=== PATIENT | female | born 1990 | race African-American/Black ===

== ENCOUNTER 2017-06-18 18:02 | Emergency (ER) | payer OTHER ==
[~2017-06-18] VITALS: Ht 172.7 cm; Wt 131.5 kg
[~2017-06-18 18:02] MED LIST: AMOXICILLIN 50500 MG PO; IBUPROFEN 200200 M1; PROMETHAZINE/C118 ML PO
[2017-06-18 18:06] VITALS: BP 149/94
[2017-06-18] MEDS ORDERED: CIPROFLOXIN HC2.5 M1 OPHTHALMIC (18:33)
== END 2017-06-18 18:45 | disposition home or self-care (01) ==
LOC: ER 18:02
DX: S05.01XA Injury of conjunctiva and corneal abrasion without foreign body, right eye, initial encounter (principal); F12.10 Cannabis abuse, uncomplicated; X58.XXXA Exposure to other specified factors, initial encounter; Y93.89 Activity, other specified; Y92.89 Other specified places as the place of occurrence of the external cause; Y99.8 Other external cause status

== ENCOUNTER 2017-06-29 15:25 | Emergency (ER) | payer OTHER ==
[~2017-06-29] VITALS: Ht 172.7 cm; Wt 131.5 kg
[~2017-06-29 15:25] MED LIST changes: +CIPROFLOXIN HC2.5 M1 OPHTHALMIC
[2017-06-29] MEDS ORDERED: MEDROL DOSPAK21 TAB PO (15:32)
[2017-06-29] MEDS ORDERED: BENADRYL25 MG PO (15:32)
[2017-06-29 15:39] VITALS: BP 129/80
== END 2017-06-29 15:39 | disposition home or self-care (01) ==
LOC: ER 15:25
DX: L50.9 Urticaria, unspecified (principal)

== ENCOUNTER 2017-09-10 17:25 | Emergency (ER) | payer OTHER ==
[~2017-09-10] VITALS: Ht 172.7 cm; Wt 131.5 kg
[~2017-09-10 17:25] MED LIST changes: +BENADRYL25 MG PO; +MEDROL DOSPAK21 TAB PO
[2017-09-10] MEDS ORDERED: MOBIC7.5 MG PO (18:27)
[2017-09-10] MEDS ORDERED: KEFLEX500 M1 PO (18:27)
[2017-09-10 18:37] VITALS: BP 167/81
== END 2017-09-10 18:38 | disposition home or self-care (01) ==
LOC: ER 17:25
DX: L03.116 Cellulitis of left lower limb (principal)

== ENCOUNTER 2020-08-18 12:35 | Emergency (ER) | payer OTHER ==
[~2020-08-18] VITALS: Ht 172.7 cm; Wt 149.7 kg
[~2020-08-18 12:35] MED LIST changes: +KEFLEX500 M1 PO; +MOBIC7.5 MG PO
[2020-08-18] MEDS ORDERED: AMOXICILLIN500 M1 PO (13:39)
[2020-08-18 15:42] VITALS: BP 148/88
== END 2020-08-18 15:43 | disposition home or self-care (01) ==
LOC: ER 12:35
DX: H66.91 Otitis media, unspecified, right ear (principal); M79.18 Myalgia, other site; H92.03 Otalgia, bilateral; H61.21 Impacted cerumen, right ear; Z79.2 Long term (current) use of antibiotics; Z79.899 Other long term (current) drug therapy

== ENCOUNTER 2021-12-15 09:43 | Emergency (ER) | payer OTHER ==
[~2021-12-15] VITALS: Ht 172.7 cm; Wt 163.3 kg
[~2021-12-15 09:43] MED LIST changes: +AMOXICILLIN500 M1 PO
[2021-12-15 09:46] VITALS: BP 136/83
== END 2021-12-15 10:40 | disposition home or self-care (01) ==
LOC: ER 09:43
DX: J06.9 Acute upper respiratory infection, unspecified (principal); Z20.822 Contact with and (suspected) exposure to COVID-19; Z79.899 Other long term (current) drug therapy